=== PATIENT | female | born 1995 | race Caucasian/White ===

== ENCOUNTER 2021-06-10 12:54 | Emergency (ER) | payer BC ==
[2021-06-10] MEDS ORDERED: Sodium Chloride 0.9% 10 ML Syringe FLUSH PRN (12:58)
--- NOTE | 2021-06-10 12:59 | EDM.PDOC ---
ED HPI GENERAL MEDICAL PROBLEM - General Chief Complaint: Respiratory Problem Stated Complaint: DIFFICULTY IN BREATHING Time Seen by Provider: 06/10/21 12:57 Source of Information: Reports: Patient, EMS - History of Present Illness INITIAL COMMENTS - FREE TEXT/NARRATIVE: 26 YO ALISA PRESENTS TO ER COMPLAINING OF DYSPNEA WITH ASSOCIATED CHEST PAIN WHICH BEGAN EARLIER THIS WEEK. PT REPORTS SHE WAS SEEN BY HER PCP YESTERDAY AND GIVEN TESSALON PERLES FOR HER COUGH AND INSTRUCTED TO CONTINUE TO USE HER RESCUE INHALER NEEDED. PT REPORTS TODAY WHILE AT WORK SHE FELT LIGHTHEADED AND DIDN'T GET ANY RELIEF FROM HER ALBUTEROL PROMPTING TRANSPORT BY EMS TO ER. PT HEMODYNAMICALLY STABLE WITHOUT ANY EVIDENCE OF HYPOXEMIA DURING TRANSPORT. PT REPORTS CHEST PAIN IS DULL, RIGHT SIDED AND MINIMAL, BUT BECOMES WORSE WITH COUGHING. Onset Date: 06/06/21 Duration: Day(s): (5) Location: Reports: Chest Quality: Reports: Dull Severity: Mild Improves with: Reports: None Worsens with: Reports: Breathing Associated Symptoms: Reports: No Other Symptoms, Chest Pain, cough w sputum, Shortness of Breath. Denies: Diaphoresis, Fever/Chills, Nausea/Vomiting - Related Data Allergies Allergy/AdvReac Type Severity Reaction Status Date / Time naltrexone Allergy Anaphylactic Verified 06/10/21 13:20 Shock shellfish derived Allergy Anaphylactic Verified 06/10/21 13:20 Shock Home Meds: Home Meds Azithromycin [Zithromax] 250 mg PO DAILY #6 tablet 06/10/21 [Rx] predniSONE [Prednisone] 20 mg PO DAILY #15 tablet 06/10/21 [Rx] ED ROS GENERAL - Review of Systems Review Of Systems: See Below Constitutional: Reports: No Symptoms HEENT: Reports: No Symptoms Respiratory: Reports: Shortness of Breath, Cough Cardiovascular: Reports: Chest Pain, Lightheadedness Endocrine: Reports: No Symptoms GI/Abdominal: Reports: No Symptoms : Reports: No Symptoms Musculoskeletal: Reports: No Symptoms Skin: Reports: No Symptoms Neurological: Reports: Dizziness Psychiatric: Reports: No Symptoms Hematologic/Lymphatic: Reports: No Symptoms Immunologic: Reports: No Symptoms ED EXAM, GENERAL - Physical Exam Exam: See Below Exam Limited By: No Limitations General Appearance: Alert, WD/WN, No Apparent Distress Eye Exam: Bilateral Eye: EOMI, PERRL Throat/Mouth: Normal Inspection, Normal Lips, Normal Teeth, Normal Gums, Normal Oropharynx, Normal Voice, No Airway Compromise Head: Atraumatic, Normocephalic Neck: Normal Inspection, Supple, Non-Tender, Full Range of Motion Respiratory/Chest: No Respiratory Distress, No Accessory Muscle Use, Chest Non- Tender, Rhonchi Cardiovascular: Normal Peripheral Pulses, Regular Rate, Rhythm, No Edema, No Gallop, No JVD, No Murmur, No Rub GI/Abdominal: Normal Bowel Sounds, Soft, Non-Tender, No Organomegaly, No Distention, No Abnormal Bruit, No Mass Back Exam: Normal Inspection, Full Range of Motion, NT Extremities: Normal Inspection, Normal Range of Motion, Non-Tender, Normal Capillary Refill, No Pedal Edema Neurological: Alert, Oriented, CN II-XII Intact, Normal Cognition, Normal Gait, Normal Reflexes, No Motor/Sensory Deficits Psychiatric: Normal Affect, Normal Mood Skin Exam: Warm, Dry, Intact, Normal Color, No Rash Lymphatic: No Adenopathy #1 Interpretation EKG Date: 06/10/21 Time: 13:07 Rhythm: NSR Rate (Beats/Min): 70 [place]: Normal P-Wave: Present QRS: Normal ST-T: Normal QT: Normal Comparison: NA - No Prior EKG Course - Vital Signs Last Recorded V/S: Last Vital Signs Temp 97.9 F 06/10/21 13:11 Pulse 92 06/10/21 13:11 Resp 18 06/10/21 13:11 BP 112/73 06/10/21 13:11 Pulse Ox 96 06/10/21 13:11 - Orders/Labs/Meds Orders: Active Orders 24 hr Category Date Time Status Cardiac Monitoring [RC] . DIRECTED Care 06/10/21 12:58 Active EKG Documentation Completion [RC] ASDIRECTED Care 06/10/21 12:58 Active Peripheral IV Care [RC] . DIRECTED Care 06/10/21 12:58 Active RT Aerosol Therapy [RC] ASDIRECTED Care 06/10/21 13:09 Active Sodium Chloride 0.9% [Saline Flush] Med 06/10/21 12:58 Active 10 ml FLUSH Q8HR PRN Peripheral IV Insertion Adult [OM.PC] Routine Oth 06/10/21 12:58 Ordered EKG 12 Lead [EK] Stat Ther 06/10/21 12:58 Ordered Medication Orders Sodium Chloride (Sodium Chloride 0.9% 10 Ml Syringe) 10 ml FLUSH Q8HR PRN PRN Reason: keep vein open Last Admin: 06/10/21 13:53 Dose: 10 ml Documented by: SEAN Labs: Laboratory Tests 06/10/21 06/10/21 Range/Units 13:10 13:10 WBC 8.51 (5.00-10.00) 10^3/uL RBC 4.82 (3.80-5.50) 10^6/uL Hgb 14.3 (12.0-16.0) g/dL Hct 42.5 (37.0-47.0) % MCV 88.2 (82.0-92.0) fL MCH 29.7 (27.0-31.0) pg MCHC 33.6 (32.0-36.0) g/dL RDW 12.4 (11.5-14.5) % Plt Count 307 (150-400) 10^3/uL MPV 9.7 (7.4-10.4) fL Immature Gran % (Auto) 0.1 (0.0-5.0) % Neut % (Auto) 60.6 (50.0-70.0) % Lymph % (Auto) 29.6 (20.0-40.0) % [place] % (Auto) 6.9 (2.0-8.0) % Eos % (Auto) 2.1 (1.0-3.0) % Baso % (Auto) 0.7 (0.0-1.0) % Neut # (Auto) 5.15 (2.50-7.00) 10^3/uL Lymph # (Auto) 2.52 (1.00-4.00) 10^3/uL [place] # (Auto) 0.59 (0.10-0.80) 10^3/uL Eos # (Auto) 0.18 (0.10-0.30) 10^3/uL Baso # (Auto) 0.06 (0.00-0.10) 10^3/uL Immature Gran # (Auto) 0.01 (0.00-0.50) 10^3/uL Sodium 140 (136-145) mmol/L Potassium 3.3 L (3.5-5.1) mmol/L Chloride 105 (98-107) mmol/L Carbon Dioxide 25.4 (21.0-32.0) mmol/L Anion Gap 12.9 (5-15) mmol/L BUN 5 L (7-18) mg/dL Creatinine 0.67 (0.51-1.17) mg/dL Est Cr Clr Drug Dosing TNP Estimated GFR (MDRD) > 60 mL/min Glucose 96 (70-140) mg/dL Calcium 8.4 L (8.7-10.3) mg/dL Total Bilirubin 0.2 (0.2-1.0) mg/dL AST 11 L (15-37) U/L ALT 13 L (14-63) U/L Alkaline Phosphatase 75 (46-116) U/L Creatine Kinase 91 (26-276) U/L CK-MB (CK-2) < 0.50 (0.00-3.60) ng/mL Troponin I High Sens < 4.000 (0-51.000) pg/mL B-Natriuretic Peptide 42 (0-100) pg/mL Total Protein 6.7 (6.4-8.2) g/dL Albumin 3.58 (3.40-5.00) g/dL HCG, Qual Negative (NEGATIVE) Meds: Medications Generic Name Dose Route Start Last Admin Trade Name Freq PRN Reason Stop Dose Admin Sodium Chloride 10 ml 06/10/21 12:58 06/10/21 13:53 Sodium Chloride 0.9% 10 Ml Syringe FLUSH 10 ml Q8HR PRN Administration keep vein open Discontinued Medications Generic Name Dose Route Start Last Admin Trade Name Freq PRN Reason Stop Dose Admin Albuterol/Ipratropium 3 ml 06/10/21 13:09 06/10/21 13:23 Albuterol/Ipratropium 3.0-0.5 Mg/3 Ml Neb Soln NEB 06/10/21 13:10 3 ml ONETIME ONE Administration Methylprednisolone Sodium Succinate 125 mg 06/10/21 13:06/10/21 13:50 Methylprednisolone Sodium Succinate 125 Mg/2 Ml Sdv IVPUSH 06/10/21 13:10 125 mg ONETIME ONE Administration - Radiology Interpretation Free Text/Narrative:: CXR- BIBASILAR ATELECTASIS VS INFILTRATE Departure - Departure Time of Disposition: 14: Disposition: Home, Self-Care 01 Condition: Good Clinical Impression: Acute bronchitis Qualifiers: Bronchitis organism: unspecified organism Qualified Code(s): J20.9 - Acute bronchitis, unspecified - Discharge Information Prescriptions: predniSONE [Prednisone] 20 mg PO DAILY #15 tablet Azithromycin [Zithromax] 250 mg PO DAILY #6 tablet Referrals: Mariam Rojas MD [Physician] - Forms: ED Department Discharge Additional Instructions: 1. DISCHARGE HOME 2. Z-MARC/PREDNISONE 60MG DAILY X 5 DAYS 3. CONTINUE ALBUTEROL HFA EVERY 4 HOURS AND NEEDED 4. FOLLOW UP IN CLINIC FOR FURTHER EVALUATION AND TREATMENT 5. RETURN TO ER FOR WORSENING SYMPTOMS Sepsis Event Note (ED) - Focused Exam Vital Signs: Vital Signs Temp Pulse Resp BP Pulse Ox 06/10/21 13:11 97.9 F 92 18 112/73 96 - My Orders Last 24 Hours: My Active Orders 06/10/21 12:58 Cardiac Monitoring [RC] . DIRECTED EKG Documentation Completion [RC] ASDIRECTED Peripheral IV Care [RC] . DIRECTED Sodium Chloride 0.9% [Saline Flush] 10 ml FLUSH Q8HR PRN Peripheral IV Insertion Adult [OM.PC] Routine EKG 12 Lead [EK] Stat 06/10/21 13:09 RT Aerosol Therapy [RC] ASDIRECTED - Assessment/Plan Last 24 Hours: My Active Orders 06/10/21 12:58 Cardiac Monitoring [RC] . DIRECTED EKG Documentation Completion [RC] ASDIRECTED Peripheral IV Care [RC] . DIRECTED Sodium Chloride 0.9% [Saline Flush] 10 ml FLUSH Q8HR PRN Peripheral IV Insertion Adult [OM.PC] Routine EKG 12 Lead [EK] Stat 06/10/21 13:09 RT Aerosol Therapy [RC] ASDIRECTED Assessment:: 1. ACUTE BRONCHITIS Plan: 1. DISCHARGE HOME 2. Z-MARC/PREDNISONE 60MG DAILY X 5 DAYS 3. CONTINUE ALBUTEROL HFA EVERY 4 HOURS AND NEEDED 4. FOLLOW UP IN CLINIC FOR FURTHER EVALUATION AND TREATMENT 5. RETURN TO ER FOR WORSENING SYMPTOMS
[2021-06-10] MEDS ORDERED: Albuterol/Ipratropium 3.0-0.5 MG/3 ML Neb Soln NEB ONE (13:09)
[2021-06-10] MEDS ORDERED: methylPREDNISolone Sodium Succinate 125 MG/2 ML SDV IVPUSH ONE (13:09)
--- NOTE | 2021-06-10 13:32 | CR ---
[id number] RAD/RAD Chest PA And Lateral EXAM: FRONTAL AND LATERAL CHEST INDICATION: DYSPNEA. COMPARISON: July 11, 2019. DISCUSSION: Mild bibasilar atelectasis and/or infiltrates. No effusions. Normal heart size. IMPRESSION: 1. Mild bibasilar atelectasis and/or infiltrates. Shayne Garrido MD 06/10/21 [id number] Thank you for allowing us to participate in the care of your patient.
[2021-06-10 13:51] LABS: ANION GAP 12.9 mmol/L (5-15); CHLORIDE,CL 105 mmol/L (98-107); SODIUM,NA 140 mmol/L (136-145)
== END 2021-06-10 14:35 | disposition home or self-care (01) ==
LOC: KA.ED 12:54
DX: J20.9 Acute bronchitis, unspecified (principal); Z91.013 Allergy to seafood; Z88.5 Allergy status to narcotic agent
CPT/HCPCS: 36415; 71046; 80053; 82550; 82553; 83880; 84484; 84703; 85025; 93005; 96374; 99285; J2930; 99284; J7620-GY

== ENCOUNTER 2023-07-07 22:58 | Observation (INO) | payer SELFPAY ==
[2023-07-07 23:57] LABS: BASOPHILS ABSOLUTE AUTO 0.03 10^3/uL (0.00-0.10); BASOPHILS PERCENT AUTO 0.3 % (0.0-1.0); EOSINOPHILS ABSOLUTE AUTO 0.16 10^3/uL (0.10-0.30); EOSINOPHILS PERCENT AUTO 1.6 % (1.0-3.0); HEMATOCRIT 45.1 % (37.0-47.0); HEMOGLOBIN 14.4 g/dL (12.0-16.0); IMMATURE GRAN ABSOLUTE AUTO 0.01 10^3/uL (0.00-0.50); IMMATURE GRAN PERCENT AUTO 0.1 % (0.0-5.0); LYMPHOCYTES ABSOLUTE AUTO 2.67 10^3/uL (1.00-4.00); LYMPHOCYTES PERCENT AUTO 25.9 % (20.0-40.0); MEAN CORPUSCULAR HEMOGLOBIN 28.8 pg (27.0-31.0); MEAN CORPUSCULAR HGB CONC 31.9 g/dL (32.0-36.0); MEAN CORPUSCULAR VOLUME 90.2 fL (82.0-92.0); MEAN PLATELET VOLUME 9.2 fL (7.4-10.4); MONOCYTES ABSOLUTE AUTO 0.51 10^3/uL (0.10-0.80); MONOCYTES PERCENT AUTO 4.9 % (2.0-8.0); NEUTROPHILS ABSOLUTE AUTO 6.93 10^3/uL (2.50-7.00); NEUTROPHILS PERCENT AUTO 67.2 % (50.0-70.0); PLATELET COUNT,PLT 354 10^3/uL (150-400); RED CELL DISTRIBUTION WIDTH 12.3 % (11.5-14.5); WHITE BLOOD CELL COUNT,WBC 10.31 10^3/uL (5.00-10.00)
[2023-07-08 00:17] LABS: AMPHETAMINES SCREEN, URINE POSITIVE (NEGATIVE); BARBITURATE SCREEN,URINE NEGATIVE (NEGATIVE); BENZODIAZEPINES SCREEN,URINE NEGATIVE (NEGATIVE); COCAINE METABOLITES,URINE NEGATIVE (NEGATIVE); METHADONE SCREEN, URINE NEGATIVE (NEGATIVE); METHAMPHETAMINES SCREEN, URINE POSITIVE (NEGATIVE); OXYCODONE SCREEN,URINE NEGATIVE (NEGATIVE); PCP SCREEN,URINE NEGATIVE (NEGATIVE); PROPOXYPHENE SCREEN,URINE NEGATIVE (NEGATIVE); TCA SCREEN,URINE NEGATIVE (NEGATIVE); THC SCREEN,URINE 50 NG/ML NEGATIVE (NEGATIVE)
[2023-07-08 00:24] LABS: ANION GAP 9.7 mmol/L (5-15); CALCIUM 8.8 mg/dL (8.7-10.3); CARBON DIOXIDE,CO2 32.4 mmol/L (21.0-32.0); CREATININE 0.72 mg/dL (0.51-1.17); EST CRCL DRUG DOSING (CG) 94.51 mL/min; POTASSIUM,K 4.1 mmol/L (3.5-5.1)
[2023-07-08] MEDS ORDERED: Acetaminophen 325 MG Tab PO PRN (02:45)
[2023-07-08] MEDS: Topiramate 25 MG Tab PO SCH ×2 (14:07→20:35)
[2023-07-08] MEDS: FLUoxetine 10 MG Cap PO SCH (14:07)
[2023-07-08] MEDS ORDERED: Thiamine 100 MG Tab PO SCH (21:00)
[2023-07-08] MEDS ORDERED: Haloperidol 0.5 MG Tab PO SCH (21:00)
[2023-07-08] MEDS ORDERED: Folic Acid 1 MG Tab PO SCH (21:00)
[2023-07-09] MEDS: Topiramate 25 MG Tab PO SCH (08:47)
[2023-07-09] MEDS: FLUoxetine 10 MG Cap PO SCH (08:47)
[2023-07-09] MEDS ORDERED: Cyanocobalamin (Vitamin B12) 500 MCG Tab PO SCH (09:00)
[2023-07-09] MEDS ORDERED: Cholecalciferol (Vitamin D3) 25 MCG Tab PO SCH (09:00)
== END 2023-07-09 15:27 ==
LOC: KA.ED 22:58 → KA.MS 07-08 02:33 → UNDOADMOB 07-08 02:33 → KA.MS 07-08 02:45
PROVIDERS: ADMIT Physician Assistant; ATTEND Physician Assistant
DX: F33.2 Major depressive disorder, recurrent severe without psychotic features (principal); R45.851 Suicidal ideations; F41.9 Anxiety disorder, unspecified; F15.10 Other stimulant abuse, uncomplicated; F90.9 Attention-deficit hyperactivity disorder, unspecified type; F17.210 Nicotine dependence, cigarettes, uncomplicated; Z88.8 Allergy status to other drugs, medicaments and biological substances; Z91.013 Allergy to seafood; Z91.51 Personal history of suicidal behavior
CPT/HCPCS: 36415; 80048; 80305-QW; 80307; 85025; 99223; 99238; 99285; A9270-GY; G0378